=== PATIENT | male | born 1995 ===

== ENCOUNTER 2018-08-16 18:43 | Emergency (ER) | payer SELFPAY ==
[2018-08-16 18:43] VITALS: BMI 25.0
[2018-08-16] MEDS ORDERED: Sodium Chloride 0.9% 1,000 ML IV STA (19:30)
--- NOTE | 2018-08-16 19:53 | ED PDOC ---
HPI: Influenza Time Seen by Provider: 08/16/18 19:21 Chief Complaint: Fever Chief Complaint (Provider): Flu-like symptoms History Per: Patient Exam Limitations: no limitations Onset/Duration Of Symptoms: Days (1x) Symptoms include: fever, bodyaches, other (chills, generalized malaise, somewhat diminished appetite, nausea) Hx Influenza Vaccination: No Additional complaint(s):: 23 year old male with no past medical history presents to the ED for an evaluation of flu-like symptoms ongoing for 1x day. Patient reports having fevers, chills, bodyaches, generalized malaise, somewhat diminished appetite and nausea today. Patient denies taking medications for symptoms at home. Flu vaccination not up to date. PMD: None Past Medical History Reviewed: Historical Data, Nursing Documentation, Vital Signs Vital Signs: Last Vital Signs Temp 102.2 F H 08/16/18 18:55 Pulse 111 H 08/16/18 18:55 Resp 16 08/16/18 18:55 BP 120/75 08/16/18 18:55 Pulse Ox 96 08/16/18 18:55 ALYX Report Viewed: Yes Primary Care Provider: FAMILY PROVIDER,NO - Medical History PMH: No Chronic Diseases - Family History Family History: States: No Known Family Hx - Social History Current smoker - smoking cessation education provided: No Alcohol: Occasional Drugs: Denies - Immunization History Hx Influenza Vaccination: No (not up to date) - Home Medications Home Medications: Ambulatory Orders Medication Instructions Recorded Azithromycin [Zithromax] 250 mg PO DAILY #6 tab 01/24/16 Ibuprofen [Motrin] 600 mg PO Q6 #20 tab 01/24/16 Amoxicillin 500 mg PO BID #14 tablet 06/03/16 Ciprofloxacin [Cipro] 500 mg PO Q12 #14 tab 08/16/18 - Allergies Allergies/Adverse Reactions: Allergies Allergy/AdvReac Type Severity Reaction Status Date / Time No Known Allergies Allergy Verified 08/16/18 18:55 Review of Systems ROS Statement: Except As Marked, All Systems Reviewed And Found Negative Constitutional: Positive for: Fever, Chills, Malaise, Other (bodyaches, somewhat diminished appetite) Gastrointestinal: Positive for: Nausea Physical Exam - Reviewed Nursing Documentation Reviewed: Yes Vital Signs Reviewed: Yes - Physical Exam Appears: Positive for: Non-toxic, No Acute Distress. Negative for: Well (febrile) Head Exam: Positive for: ATRAUMATIC, NORMOCEPHALIC Skin: Positive for: Normal Color, Warm, Dry Eye Exam: Positive for: Normal appearance ENT: Positive for: Normal ENT Inspection Neck: Positive for: Normal, Painless ROM, Supple Cardiovascular/Chest: Positive for: Tachycardia (regular rhythm) Respiratory: Positive for: Normal Breath Sounds Gastrointestinal/Abdominal: Positive for: Normal Exam, Soft. Negative for: Tenderness Neurological/Psych: Positive for: Awake, Alert, Oriented (3x) Medical Decision Making Medical Decision Makin:21 Initial impression: 23 year old male with flu-like symptoms Initial plan: * CMP * lactic acid * udip * CBC with differential * blood culture * influenza AB * urinalysis * IV NS 1,000 ml IV 1,000 mls/hr * toradol 30 mg IV * Tylenol 975 mg PO * reevaluation 23:09 Labs reviewed and are indicative of a urinary tract infection and mild leukocytosis. Patient reports marked improvement of symptoms. He is no longer febrile. Patient is stable and will be discharged with a prescription for Cipro. Diagnosis is UTI. ScribeAttestation: Documented byIna Hummel, acting as a scribe for Gennaro Alvarenga MD. Provider ScribeAttestation: All medical record entries made by the Scribe were at my direction and personally dictated by me. I have reviewed the chart and agree that the record accurately reflects my personal performance of the history, physical exam, medical decision making, and the department course for this patient. I have also personally directed, reviewed, and agree with the discharge instructions and disposition. - Laboratory Results Result Diagrams: 08/16/18 20:02 08/16/18 20:02 - ECG O2 Sat by Pulse Oximetry: 96 (RA) Pulse Ox Interpretation: Normal Disposition - Clinical Impression Clinical Impression: UTI (urinary tract infection) - Patient ED Disposition Is Patient to be Admitted: No - Disposition Disposition: Routine/Home Disposition Time: 23:09 Condition: STABLE Prescriptions: Ciprofloxacin [Cipro] 500 mg PO Q12 #14 tab Instructions: Urinary Tract Infection, Adult (DC) Forms: [facility] (Swedish) Print Language: LUXEMBOURGER
[2018-08-16 20:13] LABS: BASO % 0.3 % (0.0-2.0); EOS % 0.1 % (0.0-4.0); HEMOGLOBIN 15.6 g/dL (12.0-18.0); LYMPH # 1.1 K/uL (1.0-4.3); LYMPH % 8.9 % (20.0-40.0); MEAN CELL VOLUME 86.5 fl (80.0-94.0); MEAN CORPUSCULAR HEMOGLOBIN 28.7 pg (27.0-31.0); MEAN CORPUSCULAR HGB CONC 33.2 g/dL (33.0-37.0); MEAN PLATELET VOLUME 7.5 fl (7.2-11.7); MONO % 8.4 % (0.0-10.0); NEUT % 82.3 % (50.0-75.0); NRBC % 0.3 % (0.0-0.0); PLATELET COUNT 290 K/uL (130-400); RBC 5.44 Mil/uL (4.40-5.90); RED CELL DISTRIBUTION WIDTH 12.8 % (11.5-14.5); WHITE BLOOD COUNT 12.1 K/uL (4.8-10.8)
[2018-08-16 20:18] LABS: ALB/GLOB RATIO 1.5 (1.0-2.1); ALBUMIN 4.7 g/dL (3.5-5.0); ALT/SGPT 32 U/L (21-72); AST/SGOT 35 U/L (17-59); BLOOD UREA NITROGEN 14 mg/dl (9-20); CALCIUM 9.4 mg/dL (8.4-10.2); GFR NON-AFRICAN AMERICAN > 60
[2018-08-16 20:28] LABS: SQUAMOUS EPITHIAL < 1 /hpf (0-5); URINE BACTERIA OCC (<OCC); URINE BILIRUBIN NEGATIVE (NEGATIVE); URINE BLOOD NEGATIVE (NEGATIVE); URINE CLARITY SLIGHTY-CLOUDY (Clear); URINE COLOR YELLOW (YELLOW); URINE GLUCOSE (UA) NEG (NEGATIVE); URINE HYALINE CAST 0-2 /hpf (0-2); URINE LEUKOCYTE ESTERASE SMALL Leu/uL (Negative); URINE PROTEIN 30 mg/dL (NEGATIVE); URINE UROBILINOGEN 0.2-1.0 mg/dL (0.2-1.0)
[2018-08-16 21:08] LABS: BANDS 1 % (0-2); LYMPHOCYTE 10 % (20-50); MONOCYTE 10 % (0-10); NEUTROPHIL 79 % (42-75); PLATELET ESTIMATE NORMAL (NORMAL); TOTAL CELLS COUNTED 100
[2018-08-16] MEDS ORDERED: cefTRIAXone (Rocephin) 1 gm Inj ONE (21:35)
[2018-08-16 22:50] VITALS: TEMP 98.9
[2018-08-16 23:12] VITALS: BP 122/75; PULSE 86; RESP 17; O2SAT 96
== END 2018-08-16 23:11 | disposition home or self-care (01) ==
LOC: H.ER 18:43
DX: N39.0 Urinary tract infection, site not specified (principal); A74.9 Chlamydial infection, unspecified
CPT/HCPCS: 80053; 81003; 83605; 85025; 87040; 87086; 87491; 87591; 87804; 99284; J0696; J1885; J7030

== ENCOUNTER 2018-08-28 18:42 | Emergency (ER) | payer OTHER ==
[2018-08-28 19:06] VITALS: BP 124/73; PULSE 66; RESP 16; TEMP 98.5; O2SAT 99; BMI 27.4
[2018-08-28] MEDS ORDERED: Tetracaine 0.5% Ophth 2 ML BOTTLE OD STA (19:28)
[2018-08-28] MEDS ORDERED: Fluorescein 1 mg Ophthalmic Strip OD STA (19:28)
--- NOTE | 2018-08-28 19:47 | ED PDOC ---
HPI: Eye Injury/Pain Time Seen by Provider: 08/28/18 19:11 Chief Complaint (Nursing): Eye Problem Chief Complaint (Provider): Eye Problem History Per: Patient, Supervisor [employer] (Jey Boone #[id number]) History/Exam Limitations: no limitations Onset/Duration Of Symptoms: Hrs Current Symptoms Are (Timing): Still Present Additional Complaint(s): Patient is a 23 y/o male with no significant PMHx who presents to the ED for evaluation of right eye redness, itching and irritation onset this morning. Patient states he woke up today and his right eye was red and itchy. Patient states there is a little pain and feels like maybe something is in the eye, but denies any known objects going in eye. Patient denies contact use, vision changes, and drainage. Of note, patient has not taken any medication for relief. PCP: None Past Medical History Reviewed: Historical Data, Nursing Documentation, Vital Signs Vital Signs: Last Vital Signs Temp 98.5 F 08/28/18 19:06 Pulse 66 08/28/18 19:06 Resp 16 08/28/18 19:06 BP 124/73 08/28/18 19:06 Pulse Ox 99 08/28/18 19:06 Primary Care Provider: Doctor,Conversion - Medical History PMH: No Chronic Diseases - Surgical History Surgical History: No Surg Hx - Family History Family History: States: No Known Family Hx - Immunization History Hx Influenza Vaccination: No (not up to date) - Home Medications Home Medications: Ambulatory Orders Medication Instructions Recorded Azithromycin [Zithromax] 250 mg PO DAILY #6 tab 01/24/16 Ibuprofen [Motrin] 600 mg PO Q6 #20 tab 01/24/16 Amoxicillin 500 mg PO BID #14 tablet 06/03/16 Ciprofloxacin [Cipro] 500 mg PO Q12 #14 tab 08/16/18 Erythromycin 0.5% [Erythromycin] 1 applic OD QID #1 tube 08/28/18 - Allergies Allergies/Adverse Reactions: Allergies Allergy/AdvReac Type Severity Reaction Status Date / Time No Known Allergies Allergy Verified 08/28/18 19:06 Review of Systems ROS Statement: Except As Marked, All Systems Reviewed And Found Negative Eyes: Positive for: Pain (right), Redness (and Itchiness). Negative for: Vision Change, Other (Drainage) Physical Exam - Reviewed Nursing Documentation Reviewed: Yes Vital Signs Reviewed: Yes - Physical Exam Comments: GENERAL APPEARANCE: Patient is awake, alert, oriented x 3, in no acute distress. HEENT: (-) facial swelling and erythema, (-) facial blisters. LIDS & LASHES: Normal; (-) soft tissue swelling. PUPILS: PERRL EOMI's: Intact. LID EVERSION: (-) foreign body. CONJUNCTIVAE: (+) injection of right eye. CORNEA: (-) infiltrate. (-) drainage. ANTERIOR CHAMBER: (-) foreign body, (-) tear in iris, (-) hyphema. FUNDUSCOPIC: (-) foreign body, (-) hemorrhage. FLUORESCEIN: (+) at the 3 o'clock position - ECG O2 Sat by Pulse Oximetry: 99 (RA) Pulse Ox Interpretation: Normal Medical Decision Making Medical Decision Making: Time: 1927 Impression: Right Eye Pain Plan: Fluorescein 1 mg OD Tetracaine 2 drop OD small uptake on exam, will treat for abrasion Discussed results, diagnosis, treatment, return precautions and f/u with pt who is understanding, in agreement and stable for dc Scribe Attestation: Documented by Rocky Collins, acting as a scribe for Joe Rangel PA-C. Provider Scribe Attestation: All medical record entries made by the Scribe were at my direction and personally dictated by me. I have reviewed the chart and agree that the record accurately reflects my personal performance of the history, physical exam, medical decision making, and the department course for this patient. I have also personally directed, reviewed, and agree with the discharge instructions and disposition. Disposition - Clinical Impression Clinical Impression: Corneal abrasion, right, Eye infection - Patient ED Disposition Is Patient to be Admitted: No Counseled Patient/Family Regarding: Studies Performed, Diagnosis, Need For Followup, Rx Given - Disposition Referrals: [facility] [Outside] Disposition: Routine/Home Disposition Time: 20:18 Condition: STABLE Additional Instructions: Elsie por dejarnos cuidar de ti hoy. La atencin mdica de emergencia que recibi hoy se dirigi a vangie sntomas agudos. Si le recetaron algn medicamento, llnelo y tmelo segn las indicaciones. Los sntomas pueden tardar varios read en resolverse. Regrese al Departamento de Emergencias si vangie sntomas empeoran, no mejoran o si tiene otros problemas. Comunquese con campbell mdico dentro de 2 read para violetta nueva evaluacin y heron un seguimiento o llame a florinda de los mdicos / clnicas a los que fernandez sido referido y que figuran en el formulario de Informacin de visita al paciente que se incluye en campbell paquete de chandu. Lleve todos los documentos que recibi al momento del chandu junto con los medicamentos que est tomando para campbell visita de seguimiento. Nuestro tratamiento no puede reemplazar la atencin mdica continua por parte de un proveedor de atencin primaria (PCP) fuera del departamento de emergencias. Prescriptions: Erythromycin 0.5% [Erythromycin] 1 applic OD QID #1 tube Instructions: Corneal Abrasion (DC) Forms: [facility] (Nauruan) Print Language: URDU - POA Present On Arrival: None
[2018-08-28] MEDS ORDERED: Tetracaine 0.5% Ophth 2 ML BOTTLE ONE (19:49)
[2018-08-28] MEDS ORDERED: Fluorescein 1 mg Ophthalmic Strip ONE (19:50)
== END 2018-08-28 21:00 | disposition home or self-care (01) ==
LOC: H.ER 18:42
DX: S05.01XA Injury of conjunctiva and corneal abrasion without foreign body, right eye, initial encounter (principal)